=== PATIENT | male | born 1940 | race Two or more races ===

== ENCOUNTER 2016-10-23 11:37 | Inpatient (IN) | payer MEDICARE, BC ==
[2016-10-23] MEDS ORDERED: SODIUM CHLORIDE 0.9% 500 ML IV STA (11:57)
[2016-10-23] MEDS ORDERED: METOCLOPRAMIDE 5 MG/ML 2 ML VIAL IVP STA (11:58)
[2016-10-23] MEDS ORDERED: MECLIZINE 12.5 MG TAB PO STA (11:58)
--- NOTE | 2016-10-23 12:03 | ED ---
General Adult HPI - General Chief complaint: Dizziness Stated complaint: dizzy Time Seen by Provider: 10/23/16 11:49 Source: patient, family, RN notes reviewed Mode of arrival: wheelchair Limitations: no limitations - History of Present Illness Initial comments: Patient is a pleasant 76-year-old male presenting to the emergency department with dizziness. Symptoms have been present for the past month. Symptoms have been mostly persistent. Patient has dizziness as lightheadedness as well as spinning type sensation. Symptoms do worsen with movements and position changes. Patient feels off balance at times. Patient feels sweaty at times. Patient does have some discomfort of his upper neck. Patient has chronic back pain with chronic left leg loss of sensation and weakness. Patient gets steroid injections for this. states at times she gets forgetful. No new isolated area of weakness. No speech problems. No visual change. No new paresthesias. Patient was seen at [facility] last week however no improvement of symptoms. Patient did have computed tomography scan done showing sinusitis. - Related Data Home Medications Medication Instructions Recorded Confirmed Atorvastatin [Lipitor] 10 mg PO DAILY 10/23/16 10/23/16 Cyclobenzaprine [Flexeril] 10 mg PO TID 10/23/16 10/23/16 Fluticasone Nasal [place] [Flonase 2 spr EA NOSTRIL DAILY 10/23/16 10/23/16 Nasal [place]] Lisinopril-Hctz 10-12.5 mg 1 tab PO DAILY 10/23/16 10/23/16 [Zestoretic 10-12.5] Meclizine [Antivert] 25 mg PO TID PRN 10/23/16 10/23/16 Pregabalin [Lyrica] 225 mg PO BID 10/23/16 10/23/16 Allergies Allergy/AdvReac Type Severity Reaction Status Date / Time ibuprofen [From Motrin] Allergy Unknown Verified 10/23/16 11:56 Review of Systems ROS Statement: Those systems with pertinent positive or pertinent negative responses have been documented in the HPI. ROS Other: All systems not noted in ROS Statement are negative. Constitutional: Denies: fever Eyes: Denies: eye pain ENT: Denies: ear pain Respiratory: Denies: cough Cardiovascular: Denies: chest pain Endocrine: Denies: fatigue Gastrointestinal: Denies: abdominal pain Genitourinary: Denies: dysuria Musculoskeletal: Reports: back pain (Chronic) Skin: Denies: rash Neurological: Reports: vertigo. Denies: headache Past Medical History Past Medical History: Hyperlipidemia, Hypertension Additional Past Medical History / Comment(s): back pain, vertigo History of Any Multi-Drug Resistant Organisms: None Reported Past Psychological History: No Psychological Hx Reported Smoking Status: Never smoker Past Alcohol Use History: None Reported Past Drug Use History: None Reported General Exam Limitations: no limitations General appearance: alert, in no apparent distress Head exam: Present: atraumatic Eye exam: Present: normal appearance, PERRL, EOMI. Absent: nystagmus ENT exam: Present: normal oropharynx Neck exam: Present: normal inspection, tenderness (Mild tenderness to the upper neck posteriorly.) Respiratory exam: Present: normal lung sounds bilaterally Cardiovascular Exam: Present: regular rate, normal rhythm GI/Abdominal exam: Present: soft. Absent: tenderness Extremities exam: Present: normal inspection. Absent: pedal edema, calf tenderness Neurological exam: Present: alert, CN II-XII intact. Absent: motor sensory deficit Expanded Speech: Present: fluid speech Cranial nerves: EOM's Intact: Normal, Facial Sensation: Normal Cerebellar function: Finger to Nose: Normal Sensory exam: Upper Extremity Light Touch: Normal, Lower Extremity Light Touch: Normal Motor strength exam: RUE: 5, LUE: 5, RLE: 5, LLE: 5 Eye Response: (4) open spontaneously Motor Response: (6) obeys commands Verbal Response: (5) oriented Psychiatric exam: Present: normal affect, normal mood Skin exam: Present: normal color Course Vital Signs 10/23/16 11:42 Temperature 98.0 F Pulse Rate 94 Respiratory 20 Rate Blood Pressure 112/63 O2 Sat by Pulse 98 Oximetry EKG Findings - EKG Comments: EKG Findings:: Sinus rhythm and 92. For screening AV block with a AK of 254. QRS 126. QT 376. QTc 464. Left axis. Left bundle branch block. Septal Q waves. No acute ST change. Medical Decision Making - Medical Decision Making Patient reexamined and somewhat improved with medication. Case discussed with Dr. Lew, who will admit with hospital call. MRI will be ordered and neurology will be consult. - Lab Data Result diagrams: 10/23/16 12:39 10/23/16 12:39 Lab Results 06/10/23/16 10/23/16 Range/Units 12:39 12:39 12:39 WBC 11.2 H (3.8-10.6) k/uL RBC 4.84 (4.30-5.90) m/uL Hgb 15.0 (13.0-17.5) gm/dL Hct 41.5 (39.0-53.0) % MCV 85.6 (80.0-100.0) fL MCH 31.0 (25.0-35.0) pg MCHC 36.2 (31.0-37.0) g/dL RDW 14.2 (11.5-15.5) % Plt Count 201 (150-450) k/uL Neutrophils % 72 % Lymphocytes % 21 % Monocytes % 5 % Eosinophils % 1 % Basophils % 0 % Neutrophils # 8.0 H (1.3-7.7) k/uL Lymphocytes # 2.3 (1.0-4.8) k/uL Monocytes # 0.6 (0-1.0) k/uL Eosinophils # 0.1 (0-0.7) k/uL Basophils # 0.0 (0-0.2) k/uL PT 10.4 (9.0-12.0) sec INR 1.0 (<1.1) APTT 22.1 (22.0-30.0) sec Sodium 135 L (137-145) mmol/L Potassium 4.5 (3.5-5.1) mmol/L Chloride 101 (98-107) mmol/L Carbon Dioxide 23 (22-30) mmol/L Anion Gap 11 mmol/L BUN 33 H (9-20) mg/dL Creatinine 1.42 H (0.66-1.25) mg/dL Est GFR (MDRD) Af Amer 59 (>60 ml/min/1.73 sqM) Est GFR (MDRD) Non-Af 48 (>60 ml/min/1.73 sqM) Glucose 126 H (74-99) mg/dL Calcium 10.2 (8.4-10.2) mg/dL Total Bilirubin 0.7 (0.2-1.3) mg/dL AST 20 (17-59) U/L ALT 31 (21-72) U/L Alkaline Phosphatase 64 (38-126) U/L Total Creatine Kinase (55-170) U/L CK-MB (CK-2) (0.0-2.4) ng/mL CK-MB (CK-2) Rel Index Troponin I (0.000-0.034) ng/mL Total Protein 7.3 (6.3-8.2) g/dL Albumin 4.2 (3.5-5.0) g/dL Urine Color Urine Appearance (Clear) Urine pH (5.0-8.0) Ur Specific [place] (1.001-1.035) Urine Protein (Negative) Urine Glucose (UA) (Negative) Urine Ketones (Negative) Urine Blood (Negative) Urine Nitrite (Negative) Urine Bilirubin (Negative) Urine Urobilinogen (<2.0) mg/dL Ur Leukocyte Esterase (Negative) 10/23/16 10/23/16 Range/Units 12:39 12:47 WBC (3.8-10.6) k/uL RBC (4.30-5.90) m/uL Hgb (13.0-17.5) gm/dL Hct (39.0-53.0) % MCV (80.0-100.0) fL MCH (25.0-35.0) pg MCHC (31.0-37.0) g/dL RDW (11.5-15.5) % Plt Count (150-450) k/uL Neutrophils % % Lymphocytes % % Monocytes % % Eosinophils % % Basophils % % Neutrophils # (1.3-7.7) k/uL Lymphocytes # (1.0-4.8) k/uL Monocytes # (0-1.0) k/uL Eosinophils # (0-0.7) k/uL Basophils # (0-0.2) k/uL PT (9.0-12.0) sec INR (<1.1) APTT (22.0-30.0) sec Sodium (137-145) mmol/L Potassium (3.5-5.1) mmol/L Chloride (98-107) mmol/L Carbon Dioxide (22-30) mmol/L Anion Gap mmol/L BUN (9-20) mg/dL Creatinine (0.66-1.25) mg/dL Est GFR (MDRD) Af Amer (>60 ml/min/1.73 sqM) Est GFR (MDRD) Non-Af (>60 ml/min/1.73 sqM) Glucose (74-99) mg/dL Calcium (8.4-10.2) mg/dL Total Bilirubin (0.2-1.3) mg/dL AST (17-59) U/L ALT (21-72) U/L Alkaline Phosphatase (38-126) U/L Total Creatine Kinase 42 L (55-170) U/L CK-MB (CK-2) 1.1 (0.0-2.4) ng/mL CK-MB (CK-2) Rel Index 2.6 Troponin I <0.012 (0.000-0.034) ng/mL Total Protein (6.3-8.2) g/dL Albumin (3.5-5.0) g/dL Urine Color Yellow Urine Appearance Clear (Clear) Urine pH 5.5 (5.0-8.0) Ur Specific [place] 1.021 (1.001-1.035) Urine Protein Trace H (Negative) Urine Glucose (UA) 1+ H (Negative) Urine Ketones Trace H (Negative) Urine Blood Negative (Negative) Urine Nitrite Negative (Negative) Urine Bilirubin Negative (Negative) Urine Urobilinogen 2.0 (<2.0) mg/dL Ur Leukocyte Esterase Negative (Negative) Disposition Clinical Impression: Vertigo Disposition: ADMITTED IP TO THIS [facility] Referrals: Sterling Cortes MD [Primary Care Provider] - 1-2 days Decision Time: 14:20
[2016-10-23 12:55] LABS: Basophils % (A) 0 %; CHCM 35.1; Eosinophils # (A) 0.1 k/uL (0-0.7); Eosinophils % (A) 1 %; HCT 41.5 % (39.0-53.0); HDW 2.59; Luc # (Auto) 0.17; Luc % (Auto) 2; Lymphocytes # (A) 2.3 k/uL (1.0-4.8); Lymphocytes % (A) 21 %; MCHC 36.2 g/dL (31.0-37.0); MCV 85.6 fL (80.0-100.0); Mean Platelet Volume 7.1; Monocytes # (A) 0.6 k/uL (0-1.0); Monocytes % (A) 5 %; Neutrophils % (A) 72 %; RBC 4.84 m/uL (4.30-5.90); RDW 14.2 % (11.5-15.5); WBC 11.2 k/uL (3.8-10.6); WBC (Perox) 11.14
[2016-10-23 13:04] LABS: Partial Thromboplastin Time 22.1 sec (22.0-30.0); Prothrombin Time 10.4 sec (9.0-12.0)
[2016-10-23 13:11] LABS: Calcium 10.2 mg/dL (8.4-10.2); Potassium 4.5 mmol/L (3.5-5.1); Total Bilirubin 0.7 mg/dL (0.2-1.3); Total Protein 7.3 g/dL (6.3-8.2)
[2016-10-23 13:14] LABS: Appearance,Urine Clear (Clear); Bilirubin,Urine Negative (Negative); Glucose,Urine (UA) 1+ (Negative); Ketones,Urine Trace (Negative); Leukocyte Esterase,Urine Negative (Negative); Nitrite,Urine Negative (Negative); PH, Urine 5.5 (5.0-8.0); Protein,Urine Trace (Negative); Specific Gravity,Urine 1.021 (1.001-1.035); UA Billing (MACRO vs. MICRO) CHEM
[2016-10-23 13:17] LABS: Creatine Kinase 42 U/L (55-170)
[2016-10-23 13:30] LABS: Creatine Kinase MB 1.1 ng/mL (0.0-2.4); Troponin I <0.012 ng/mL (0.000-0.034)
[2016-10-23] MEDS ORDERED: NALOXONE 0.4 MG/ML 1 ML VIAL IV PRN (14:20)
[2016-10-23] MEDS ORDERED: MECLIZINE 25 MG TAB PO PRN (14:24)
--- NOTE | 2016-10-23 16:10 | MR ---
EXAMINATION TYPE: MR brain/cspine wo/w DATE OF EXAM: 10/23/2016 COMPARISON: NONE HISTORY: Vertigo...Multihance 20ml TECHNIQUE: Multiplanar, multisequence images of the brain and brainstem is performed without and with IV contras t, utilizing 20 mL intravenous MultiHance . FINDINGS: BRAIN: Midline structures are unremarkable. There is a normal craniocervical junction. Echoplanar diffusion imaging is normal. There are normal vascular flow voids. The orbits are normal. There is no evidence of a CP angle mass lesion. There are scattered high signal FLAIR lesions. In this age group this is likely secondary to small ve ssel disease. There is no mass effect, midline shift or intracranial blood. Following intravenous administration of gadolinium, I do not see evidence of abnormal enhancement. CERVICAL SPINE: Prevertebral soft tissues are normal. Vertebral body height and alignment are maintained. Atlantoaxial relationships are normal. There is a normal craniocervical junction. Cord signal appears maintained. There is moderate artifact in the lower cervical region. At C2-C3, no definite abnormality is seen. At C3-C4, there is mild disc space loss and disc desiccation. There is a central disc protrusion defo rming the thecal sac with cord contact but without compression. There is mild left-sided intervertebr al foraminal narrowing secondary to uncovertebral joint disease. The facets are unremarkable. At C4-C5, there is disc space loss and hypertrophic spondylosis anteriorly and posteriorly. There is bilateral intervertebral foraminal narrowing. There is a diffuse disc displacement. The facets are un remarkable. There is uncovertebral joint disease. At C5-C6, there is disc space loss and hypertrophic spondylosis. There is bilateral intervertebral fo raminal narrowing, worse on the left than the right. There is a diffuse disc displacement deforming t he thecal sac with cord contact but without compression. The facets are unremarkable. There is uncove rtebral joint disease. At C6-C7, there is disc space loss. There is a broad-based disc displacement. This is deforming the t hecal sac with cord contact but without compression. There is bilateral intervertebral foraminal narr owing. The facets are unremarkable. There is degenerative changes within the uncovertebral joints. At C7-T1, no discrete abnormality is seen. IMPRESSION: 1. DIFFUSE DEGENERATIVE DISC DISEASE, HYPERTROPHIC SPONDYLOSIS AND UNCOVERTEBRAL JOINT DISEASE. 2. MULTILEVEL INTERVERTEBRAL FORAMINAL NARROWING. 3. DISC LEVELS WITH DISC DISPLACEMENTS OR PROTRUSIONS DEFORMING THE THECAL SAC WITH CORD CONTACT WITH OUT COMPRESSION INCLUDING C4-5, C5-6 AND C6-7. 4. NO ACUTE INTRACRANIAL ABNORMALITY. 5. SCATTERED HIGH SIGNAL FLAIR LESIONS THROUGHOUT THE DEEP WHITE MATTER TRACTS OF THE CEREBRAL HEMISP HERES ARE NONSPECIFIC. IN THIS AGE GROUP, THESE LIKELY RELATE TO SMALL VESSEL DISEASE.
[2016-10-23] MEDS: SODIUM CHLORIDE 0.9% 1,000 ML IV SCH (17:07)
[2016-10-23 17:38] VITALS: RESP 16
--- NOTE | 2016-10-23 18:19 | P.CNNES ---
History of Present Illness Consult date: 10/23/16 History of Present Illness: The patient is a 76-year-old male who reports that he has been having dizziness for 1 month. He describes it as a sensation of feeling like his went to pass out. His who was at his bedside states that he becomes diaphoretic and pale. Sometimes he has to sit down. He has never lost consciousness. He states the dizziness is described as a sense of lightheadedness as well as a sense of motion and vertigo at times. If he bends over it is worse and if he turns quickly it is worse. He complains of right ear tinnitus and pain for the last 1 month. He complains of pressure sensation in the neck for the last 3 months. He has chronic neck pain but the last 3 months have been worse. He denied any other neurologic symptoms such as focal weakness numbness visual disturbance facial droop or speech disturbance he had a MRI of the brain which showed diffuse scattered high signal lesions consistent with small vessel disease. He also had an MRI of the cervical spine which showed diffuse degenerative disc disease and spondylosis and disc displacements. Review of Systems Constitutional: Denies chills, Denies fever Eyes: denies blurred vision, denies pain Ears, nose, mouth and throat: Denies headache, Denies sore throat Cardiovascular: Denies chest pain, Denies shortness of breath Respiratory: Denies cough Gastrointestinal: Denies abdominal pain, Denies diarrhea, Denies nausea, Denies vomiting Musculoskeletal: Denies myalgias Neurological: Denies numbness, Denies weakness Psychiatric: Denies anxiety, Denies depression Past Medical History Past Medical History: Hyperlipidemia, Hypertension, Pneumonia, Rheumatoid Arthritis (RA) Additional Past Medical History / Comment(s): chronic back pain/chronic lt leg loss of sensation/weak stated gets injections for this", vertigo, bronchitis, "occular migraines","pterygium", tinnitus rt ear, "irreg heart beat", shingles approx may 2016, upper bridge.boarderline diabetic-no meds taken and does'nt check bs. History of Any Multi-Drug Resistant Organisms: None Reported Additional Past Surgical History / Comment(s): la shoulder arthrosocpy, injections in back Past Anesthesia/Blood Transfusion Reactions: Motion Sickness Additional Past Anesthesia/Blood Transfusion Reaction / Comment(s): clausterphobia Smoking Status: Former smoker - Past Family History Father Family Medical History: No Reported History Additional Family Medical History / Comment(s): WAS HEALTHY FROM "OLD AGE AT AGE 89" Mother Family Medical History: No Reported History Additional Family Medical History / Comment(s): IN HER 90'S "OLD AGE" Medications and Allergies Home Medications Medication Instructions Recorded Confirmed Type Atorvastatin [Lipitor] 10 mg PO DAILY 10/23/16 10/23/16 History Cyclobenzaprine [Flexeril] 10 mg PO TID 10/23/16 10/23/16 History Fluticasone Nasal [place] [Flonase 2 spr EA NOSTRIL DAILY 10/23/16 10/23/16 History Nasal [place]] Lisinopril-Hctz 10-12.5 mg 1 tab PO DAILY 10/23/16 10/23/16 History [Zestoretic 10-12.5] Meclizine [Antivert] 25 mg PO TID PRN 10/23/16 10/23/16 History Pregabalin [Lyrica] 225 mg PO BID 10/23/16 10/23/16 History Allergies Allergy/AdvReac Type Severity Reaction Status Date / Time ibuprofen [From Motrin] Allergy Unknown Verified 10/23/16 11:56 Physical Examination - Vital Signs Vital Signs: Vital Signs Temp Pulse Pulse Resp BP BP Pulse Ox 10/23/16 15:30 97.9 F 85 16 149/74 98 10/23/16 14:36 98.3 F 84 18 120/74 98 10/23/16 14:10 88 18 127/70 97 10/23/16 13:10 93 18 118/68 95 10/23/16 11:42 98.0 F 94 20 112/63 98 Intake and Output 10/23/16 10/23/16 10/23/16 06:59 14:59 22:59 Other: Voiding Method Toilet Weight 106.594 kg Patient Weight 10/24/16 06:59 Weight 106.594 kg - Constitutional General appearance: average body habitus - EENT EENT: PERRL, hearing intact, vision intact - Respiratory Respiratory: lungs clear - Cardiovascular Cardiovascular: regular rate, normal S1, normal S2 - Neurologic Mental status he was awake alert and oriented he answered questions appropriately there is no a aphasia or dysarthria Cranial nerve examination: PERRL, EOMI, VFF, V1/V2/V3 grossly intact, face symmetric, tongue midline Speech examination: intact Detailed motor examination: grossly full strength in all extremities Detailed sensory examination: intact - Psychiatric Psychiatric: mood/affect appropriate Results - Laboratory Findings CBC and BMP: 10/23/16 12:39 10/23/16 12:39 Abnormal Lab Findings: Abnormal Labs 10/23/16 10/23/16 10/23/16 12:39 12:39 12:39 WBC 11.2 H Neutrophils # 8.0 H Sodium 135 L BUN 33 H Creatinine 1.42 H Glucose 126 H Total Creatine Kinase 42 L Urine Protein Urine Glucose (UA) Urine Ketones 10/23/16 12:47 WBC Neutrophils # Sodium BUN Creatinine Glucose Total Creatine Kinase Urine Protein Trace H Urine Glucose (UA) 1+ H Urine Ketones Trace H Assessment and Plan (1) Vertigo Status: Acute Code(s): R42 - DIZZINESS AND GIDDINESS (2) Pre-syncope Status: Acute Code(s): R55 - SYNCOPE AND COLLAPSE (3) Cervical disc disease Status: Acute Code(s): M50.90 - CERVICAL DISC DISORDER, UNSP, UNSPECIFIED CERVICAL REGION Plan: The patient is having both vertigo as well as presyncopal symptoms. He has events where he feels like his go to pass out with lightheadedness and diaphoresis. Is also having events which are aggravated by movement where he feels a vertigo with slight nausea. He does not have any clinical history to suggest vertebrobasilar symptoms. His vertigo is more likely related to a peripheral vestibular disturbance. Recommend salt restriction and continue Antivert. Recommend follow up with ENT regarding right ear tinnitus and right ear pain. He will was advised to take one aspirin a day for stroke prevention and we will do a carotid ultrasound and echocardiogram. He will be seeing orthopedics for his spine.
[2016-10-23] MEDS: METOCLOPRAMIDE 5 MG/ML 2 ML VIAL IVP SCH ×2 (18:21→23:27)
--- NOTE | 2016-10-23 19:30 | US ---
EXAMINATION TYPE: US carotid duplex BILAT DATE OF EXAM: 10/23/2016 COMPARISON: NONE CLINICAL HISTORY: Vertigo. EXAM MEASUREMENTS: RIGHT: Peak Systolic Velocity (PSV) cm/sec ----- Right CCA: 115.9 ----- Right ICA: 74.9 ----- Right ECA: 56.9 ICA/CCA ratio: 0.6 RIGHT: End Diastole cm/sec ----- Right CCA: 14.5 ----- Right ICA: 22.7 ----- Right ECA: 56.9 LEFT: Peak Systolic Velocity (PSV) cm/sec ----- Left CCA: 62.5 ----- Left ICA: 60.5 ----- Left ECA: 68.3 ICA/CCA ratio: 1.0 LEFT: End Diastole cm/sec ----- Left CCA: 10.2 ----- Left ICA: 18.4 ----- Left ECA: 5.1 VERTEBRALS (direction of flow): Right Vertebral: Antegrade Left Vertebral: Antegrade Mild plaque, No significant velocity elevations. IMPRESSION: There is antegrade flow in the vertebral arteries. The images and measurements suggest 1 0% stenosis of both internal carotid arteries. Criteria for Assigning % of Stenosis / Diameter reduction (Estimation based on the indirect measurements of the internal carotid artery velocities (ICA PSV). 1. Normal (no stenosis)=ICA PSV < 125 cm/s: ratio < 2.0: ICA EDV<40 cm/s. 2. Less than 50% stenosis=ICA PSV < 125 cm/s: ratio < 2.0: ICA EDV<40 cm/s. 3. 50 to 69% stenosis=ICA PSV of 125 to 230 cm/s: ration 2.0 ? 4.0: ICA EDV 40-100 cm/s. 4. Greater than 70% stenosis to near occlusion= ICA PSV > 230 cm/s: ratio > 4.0: ICA EDV > 100 cm/s. 5. Near occlusion= ICA PSV velocities may be low or undetectable: variable ratio and ICA EDV. 6. Total occlusion=unable to detect flow.
[2016-10-23] MEDS ORDERED: PREGABALIN 75 MG CAP PO SCH (21:00)
[2016-10-23] MEDS: MECLIZINE 12.5 MG TAB PO SCH (21:19)
[2016-10-23] MEDS: CYCLOBENZAPRINE 10 MG TAB PO SCH (23:11)
[2016-10-24] MEDS: METOCLOPRAMIDE 5 MG/ML 2 ML VIAL IVP SCH (05:50)
[2016-10-24] MEDS: SODIUM CHLORIDE 0.9% 1,000 ML IV SCH (05:50)
[2016-10-24] MEDS: MECLIZINE 12.5 MG TAB PO SCH (09:00)
[2016-10-24] MEDS ORDERED: ATORVASTATIN 10 MG TAB PO SCH (09:00)
[2016-10-24] MEDS ORDERED: FLUTICASONE 50MCG/SPRAY NASAL 16GM EA NOSTRIL SCH (09:00)
[2016-10-24] MEDS ORDERED: LISINOPRIL-HCTZ 10-12.5 MG 1 EACH TAB PO SCH (09:00)
[2016-10-24] MEDS: CYCLOBENZAPRINE 10 MG TAB PO SCH (09:02)
[2016-10-24 09:17] VITALS: BP 131/67; PULSE 97; TEMP 98.2
--- NOTE | 2016-10-24 12:02 | P.CNOR ---
History of Present Illness - [facility] Consult date: 10/24/16 History of present illness: This is a 76-year-old male admitted with vertigo and dizziness. He complains of neck pain as well. He has been following with Dr. Steinberg at [facility] and has had 3 lumbar epidural injections which have improved his low back and leg pain. He has not been evaluated for his neck. He states that he has noticed that he is dropping objects with his left arm has noted some weakness. He has been seen by neurology for the dizziness and vertigo. Past Medical History Past Medical History: Hyperlipidemia, Hypertension, Pneumonia, Rheumatoid Arthritis (RA) Additional Past Medical History / Comment(s): chronic back pain/chronic lt leg loss of sensation/weak stated gets injections for this", vertigo, bronchitis, "occular migraines","pterygium", tinnitus rt ear, "irreg heart beat", shingles approx may 2016, upper bridge.boarderline diabetic-no meds taken and does'nt check bs. History of Any Multi-Drug Resistant Organisms: None Reported Additional Past Surgical History / Comment(s): la shoulder arthrosocpy, injections in back Past Anesthesia/Blood Transfusion Reactions: Motion Sickness Additional Past Anesthesia/Blood Transfusion Reaction / Comm: clausterphobia Smoking Status: Former smoker - Past Family History Father Family Medical History: No Reported History Additional Family Medical History / Comment(s): WAS HEALTHY FROM "OLD AGE AT AGE 89" Mother Family Medical History: No Reported History Additional Family Medical History / Comment(s): IN HER 90'S "OLD AGE" Medications and Allergies Home Medications Medication Instructions Recorded Confirmed Type Atorvastatin [Lipitor] 10 mg PO DAILY 10/23/16 10/23/16 History Cyclobenzaprine [Flexeril] 10 mg PO TID 10/23/16 10/23/16 History Fluticasone Nasal [place] [Flonase 2 spr EA NOSTRIL DAILY 10/23/16 10/23/16 History Nasal [place]] Lisinopril-Hctz 10-12.5 mg 1 tab PO DAILY 10/23/16 10/23/16 History [Zestoretic 10-12.5] Pregabalin [Lyrica] 225 mg PO BID 10/23/16 10/23/16 History Allergies Allergy/AdvReac Type Severity Reaction Status Date / Time ibuprofen [From Motrin] Allergy Unknown Verified 10/23/16 11:56 Physical Examination This is a pleasant 76-year-old male in no acute distress. He is alert and oriented 3. Exam of the head neck reveal no obvious deformity. He has some limitation in cervical motion, particularly rotation and extension. There is pain on palpation about the cervical spine and paraspinal musculature up into the occipital region. Exam the upper extremities reveals no obvious deformity. There is decreased basketballs and footballs reverser strength on the left. There is weakness with thumb extension and maintaining finger extension on the left. He has normal sensation to the fingers on both hands. He has full wrist and finger motion without difficulty or pain. Radial pulses are +2/4 bilaterally. Results MRI of the cervical spine reveals degenerative disc disease throughout with foraminal and mild canal stenosis. No acute fractures identified. - Labs Labs: Abnormal Lab Results - Last 24 Hours (Table) 10/23/16 10/23/16 10/23/16 Range/Units 12:39 12:39 12:39 WBC 11.2 H (3.8-10.6) k/uL Neutrophils # 8.0 H (1.3-7.7) k/uL Sodium 135 L (137-145) mmol/L BUN 33 H (9-20) mg/dL Creatinine 1.42 H (0.66-1.25) mg/dL Glucose 126 H (74-99) mg/dL Total Creatine Kinase 42 L (55-170) U/L Urine Protein (Negative) Urine Glucose (UA) (Negative) Urine Ketones (Negative) 10/23/16 Range/Units 12:47 WBC (3.8-10.6) k/uL Neutrophils # (1.3-7.7) k/uL Sodium (137-145) mmol/L BUN (9-20) mg/dL Creatinine (0.66-1.25) mg/dL Glucose (74-99) mg/dL Total Creatine Kinase (55-170) U/L Urine Protein Trace H (Negative) Urine Glucose (UA) 1+ H (Negative) Urine Ketones Trace H (Negative) H & H 10/23/16 Range/Units 12:39 Hgb 15.0 (13.0-17.5) gm/dL Hct 41.5 (39.0-53.0) % Coagulation 10/23/16 Range/Units 12:39 INR 1.0 (<1.1) Result Diagrams: 10/23/16 12:39 10/23/16 12:39 Assessment and Plan (1) Cervical disc disease Status: Acute (2) Vertigo Status: Acute Plan: The clinical and MRI findings are discussed with the patient and his family. I have discussed the case with Dr. Lew as well. I recommend that he be on a steroid or other anti-inflammatory and Dr. Lew's discretion. It is also recommended that he follow-up with Dr. Steinberg for possible epidural cervical injection. I will order physical therapy for treatment modalities for his neck pain. He may follow-up with Dr. Handy outpatient basis.
--- NOTE | 2016-10-24 12:55 | ECHOF ---
Referral Reason:Vertigo MEASUREMENTS -------- HEIGHT: 180.3 cm WEIGHT: 106.6 kg BP: 125/58 IVSd: 1.3 cm (0.6 - 1.1) LVIDd: 3.2 cm (3.9 - 5.3) LVPWd: 1.4 cm (0.6 - 1.1) IVSs: 1.8 cm LVIDs: 1.8 cm LVPWs: 1.8 cm Ao Diam: 3.4 cm (2.0 - 3.7) AV Cusp: 1.8 cm (1.5 - 2.6) LA Diam: 3.3 cm (2.7 - 3.8) MV EXCURSION: 12.495 mm (> 18.000) MV EF SLOPE: 150 mm/s (70 - 150) EPSS: 1.2 cm MV E Josiah: 0.43 m/s MV DecT: 147 ms MV A Josiah: 0.67 m/s MV E/A Ratio: 0.64 RAP: 5.00 mmHg RVSP: 9.56 mmHg FINDINGS -------- 1ST degree AV block with left bundle branch block This was a technically adequate study. There is mild concentric left ventricular hypertrophy. Overall left ventricular systolic function is normal with, an EF between 55 - 60 %. The right ventricle is normal in size and function. The left atrium is normal in size. The right atrium is normal in size. The aortic valve is trileaflet, and appears structurally normal. No aortic stenosis or regurgitation. The mitral valve leaflets are mildly thickened. Mild mitral regurgitation is present. Mild tricuspid regurgitation present. The right ventricular systolic pressure, as measured by Doppler, is 9.56mmHg. Pulmonic valve appears structurally normal. The aortic root size is normal. The pericardium is normal. CONCLUSIONS -------- 1. 1ST degree AV block with left bundle branch block 2. Mild mitral regurgitation is present. 3. Mild tricuspid regurgitation present. 4. The right ventricular systolic pressure, as measured by Doppler, is 9.56mmHg. 5. Pulmonic valve appears structurally normal. 6. The aortic root size is normal. 7. The pericardium is normal. 8. This was a technically adequate study. 9. There is mild concentric left ventricular hypertrophy. 10. Overall left ventricular systolic function is normal with, an EF between 55 - 60 %. 11. The right ventricle is normal in size and function. 12. The left atrium is normal in size. 13. The right atrium is normal in size. 14. The aortic valve is trileaflet, and appears structurally normal. No aortic stenosis or regurgitation. 15. The mitral valve leaflets are mildly thickened. MATERIAL MAN: Becky Causey RDCS
--- NOTE | 2016-11-01 10:01 | HP ---
DATE OF ADMISSION: 10/23/2016 CHIEF COMPLAINTS: Vertigo and dizziness. HISTORY OF PRESENT ILLNESS: This 76 year old gentleman with past medical history of hypertension, hyperlipidemia, pneumonia, rheumatoid arthritis, complaining of dizziness and vertigo for the last one week, the patient also had an episode of presyncope episodes. The patient came to [facility] and was admitted for further evaluation and treatment. There is no history of fever, rigors or chills. No history of headache, loss of consciousness or seizures. Neurology evaluation in progress. PAST MEDICAL HISTORY: History of hypertension, hyperlipidemia, pneumonia. MEDICATIONS: Prior to admission include: 1. Lyrica po daily. 2. Lisinopril. 3. Hydrochlorothiazide. 4. Flexeril. 5. Lipitor. 6. Flonase. 7. Medrol dose [place]fr[place]. 8. Plavix. ALLERGIES: IBUPROFEN. FAMILY HISTORY: No history of heart disease or strokes in the family. SOCIAL HISTORY: Previous history of smoking. No history of alcohol intake. REVIEW OF SYSTEMS: ENT: As mentioned earlier. CARDIOVASCULAR: No angina. RESPIRATORY: No cough. GI: No nausea or vomiting. : No dysuria. NERVOUS SYSTEM: As mentioned earlier. ALLERGY/IMMUNOLOGY: No asthma or hayfever. MUSCULOSKELETAL: As mentioned earlier. HEMATOLOGY/ONCOLOGY: No history of anemia. ENDOCRINE: No history of diabetes, hypothyroidism. CONSTITUTIONAL: As mentioned earlier. DERMATOLOGY: Negative. RHEUMATOLOGICAL: Negative. PSYCHIATRY: As mentioned earlier. PHYSICAL EXAMINATION: The patient is alert and oriented times three. Pulse 97. Blood pressure 112/ 63. Respiratory 20. Temperature 98 degrees. Pulse ox 98% on room air. HEENT: Conjunctivae normal. NECK: No JVD. CARDIOVASCULAR S1, S2 muffled. RESPIRATORY: Breath sounds diminished at the bases. A few scattered rhonchi and crackles. ABDOMEN: Soft, nontender. LEGS: No edema. No swelling. NERVOUS SYSTEM: Higher functions as mentioned earlier. Moves all four limbs. No focal motor deficits. LYMPHATICS: No lymph nodes palpable in the neck, axilla or groin. SKIN: No ulcer, rash or bleeding. Labs at this time shows WBC 11.2, sodium 135, creatinine 1.4. ASSESSMENT: 1. Dizziness and vertigo for evaluation, rule out acute transient ischemic attack. 2. Hypertension. 3. Hyperlipidemia. 4. Increased creatinine. RECOMMENDATIONS AND DISCUSSION: Recommend to continue current medications. Continue symptomatic treatment. I would recommend further evaluation and brain MRI also. Guarded prognosis because of multiple complex medical issues. Further recommendations to follow. MTDD
--- NOTE | 2016-11-01 14:58 | DS ---
FINAL DIAGNOSES: 1. Dizziness and vertigo for evaluation; possibly verterbrobasilar dysfunction. 2. Cervical degenerative joint disease. 3. Hypertension. 4. Hyperlipidemia. DISCHARGE DISPOSITION: Patient will be discharged in stable condition with guarded prognosis. HISTORY OF PRESENT ILLNESS: This 76-year-old gentleman with a past medical history of multiple medical problems was admitted with vertigo and dizziness. Acute stroke was ruled out. Patient improved significantly. Neurology saw the patient. On exam, vitals are stable. CARDIOVASCULAR: S1, S2 muffled. ABDOMEN: Soft. NERVOUS SYSTEM: No focal deficit. The patient was also seen by Orthopedic Surgery. DISCHARGE ADVICE AND MEDICATIONS: 1. Diet is cardiac. 2. Activity limited until followup. 3. Follow up with Dr. Cortes. 4. Follow up with ENT as well as Neurology and Orthopedic Surgery as recommended. 5. Lipitor 10 mg p.o. daily. 6. Plavix 75 mg p.o. daily. 7. Flexeril 10 mg t.i.d. 8. Flonase 2 sprays daily. 9. Lisinopril/hydrochlorothiazide 10/12.5 mg daily. 10. Antivert 12.5 mg t.i.d. p.r.n. 11. Medrol Dosepak. 12. Lyrica 225 mg p.o. b.i.d. MTDD
== END 2016-10-24 14:30 | disposition home or self-care (01) | DRG 149 ==
LOC: EC 11:37 → 5MS5E 14:22
PROVIDERS: ADMIT Hospitalist; ATTEND Hospitalist
DX: H81.8X9 Other disorders of vestibular function, unspecified ear (principal); I44.7 Left bundle-branch block, unspecified; M06.9 Rheumatoid arthritis, unspecified; M50.21 Other cervical disc displacement, high cervical region; R55 Syncope and collapse; I10 Essential (primary) hypertension; E78.5 Hyperlipidemia, unspecified; M50.31 Other cervical disc degeneration, high cervical region; I67.9 Cerebrovascular disease, unspecified; G43.B0 Ophthalmoplegic migraine, not intractable; M48.02 Spinal stenosis, cervical region; R94.4 Abnormal results of kidney function studies; H93.11 Tinnitus, right ear; R73.09 Other abnormal glucose; R53.1 Weakness; H92.01 Otalgia, right ear; M54.5 Low back pain; G89.29 Other chronic pain; Z79.899 Other long term (current) drug therapy; Z87.891 Personal history of nicotine dependence; Z88.6 Allergy status to analgesic agent; Z87.01 Personal history of pneumonia (recurrent); Z87.09 Personal history of other diseases of the respiratory system; Z86.19 Personal history of other infectious and parasitic diseases; Z79.51 Long term (current) use of inhaled steroids; Z86.69 Personal history of other diseases of the nervous system and sense organs
CPT/HCPCS: 36415; 70553; 72156; 80053; 81003; 82550; 82553; 84484; 85025; 85610; 85730; 93005; 93306; 93880; 96374; 99285

== ENCOUNTER → 2017-07-15 | Outpatient (CLI) | payer MEDICARE, BC ==
--- NOTE | 2017-07-15 12:43 | MR ---
EXAMINATION TYPE: MR lumbar spine wo con DATE OF EXAM: 07/15/2017 11:44 AM COMPARISON: NONE HISTORY: Spinal stenosis, lumbar w/ neurogenic claudication, back pain Multiplanar, MultiSpin echo imaging of the lumbar spine was performed. L1-L2: Severe disc desiccation. Broad-based subligamentous disc herniation effaces the ventral thecal sac. Moderate central stenosis. Hypertrophy of the ligamentum flavum and facet joint arthropathy. L2-L3: Severe disc desiccation. Broad-based subligamentous disc herniation effaces the ventral thecal sac. Moderate central stenosis. Hypertrophy of the ligamentum flavum and facet joint arthropathy. L3-L4: Severe disc desiccation. Mild disc bulge paracentral to the right with mild right foraminal en croachment. No evidence for central stenosis or darby herniation. L4-L5: Severe disc desiccation. Mild disc bulge paracentral to the right with mild right foraminal en croachment. No evidence for central stenosis or darby herniation. L5-S1: Severe disc desiccation. Right paracentral disc bulge mild right foraminal encroachment. No ce ntral stenosis or disc herniation. Lumbar segments are intact. No paraspinal masses are identified. Conus medullaris has a normal appe arance. IMPRESSION: 1. Multilevel degenerative disc disease with moderate central stenosis at L1-L2 3. See above.
== END | disposition home or self-care (01) ==
LOC: RADMRIMAIN 10:44
PROVIDERS: ATTEND Neurological Surgery
DX: M48.061 Spinal stenosis, lumbar region without neurogenic claudication (principal); M51.36 Other intervertebral disc degeneration, lumbar region; M51.26 Other intervertebral disc displacement, lumbar region; M46.96 Unspecified inflammatory spondylopathy, lumbar region; M24.28 Disorder of ligament, vertebrae
CPT/HCPCS: 72148

== ENCOUNTER 2020-10-23 18:00 | Emergency (ER) | payer MEDICARE ==
[2020-10-23 18:26] VITALS: BP 150/63; PULSE 77; RESP 18; TEMP 98.2
--- NOTE | 2020-10-23 19:43 | ED ---
General Adult HPI - General Chief complaint: Extremity Problem,Nontraumatic Stated complaint: Sent by Ortho/leg pain Time Seen by Provider: 10/23/20 18:57 Source: patient Mode of arrival: ambulatory Limitations: no limitations - History of Present Illness Initial comments: 80 year-old male patient presents to the emergency department sent in after having an abnormal lower extremity ultrasound outpatient today. Patient states he has been having left leg pain and swelling. Did see orthopedics, had his left knee drained a few weeks ago, but continued to have pain. They ordered left lower extremity ultrasound which he had performed today and was told he had a blood clot and to come in for further evaluation. Patient is reporting pain to the posterior leg. Reports intermittent swelling. No history of blood clots. Does take a baby aspirin. Denies any fever, chills, or redness in the leg. Denies any chest pain, shortness of breath, or palpitations. - Related Data Home Medications Medication Instructions Recorded Confirmed Atorvastatin [Lipitor] 10 mg PO DAILY 10/23/16 10/23/16 Cyclobenzaprine [Flexeril] 10 mg PO TID 10/23/16 10/23/16 Fluticasone Nasal [place] [Flonase 2 spr EA NOSTRIL DAILY 10/23/16 10/23/16 Nasal [place]] Lisinopril-Hctz 10-12.5 mg 1 tab PO DAILY 10/23/16 10/23/16 [Zestoretic 10-12.5] Pregabalin [Lyrica] 225 mg PO BID 10/23/16 10/23/16 Previous Rx's Medication Instructions Recorded Clopidogrel [Plavix] 75 mg PO DAILY #30 tablet 10/24/16 Meclizine [Antivert] 12.5 mg PO TID #30 tab 10/24/16 methylPREDNISolone Dose Pack 4 mg PO DIRECTED #21 package 10/24/16 [Medrol Dose Pack] Apixaban [Eliquis Starter Pack 0 mg PO DIRECTED 30 Days #1 pack 10/23/20 (for VTE)] Allergies Allergy/AdvReac Type Severity Reaction Status Date / Time ibuprofen [From Motrin] Allergy Unknown Verified 10/23/20 18:26 Review of Systems ROS Statement: Those systems with pertinent positive or pertinent negative responses have been documented in the HPI. ROS Other: All systems not noted in ROS Statement are negative. Past Medical History Past Medical History: Hyperlipidemia, Hypertension, Pneumonia, Rheumatoid Arthritis (RA) Additional Past Medical History / Comment(s): chronic back pain/chronic lt leg loss of sensation/weak stated gets injections for this", vertigo, bronchitis,"occular migraines","pterygium", tinnitus rt ear, "irreg heart beat", shingles approx may 2016, upper bridge.boarderline diabetic-no meds taken and does'nt check bs. History of Any Multi-Drug Resistant Organisms: None Reported Additional Past Surgical History / Comment(s): la shoulder arthrosocpy, injections in back Past Anesthesia/Blood Transfusion Reactions: Motion Sickness Additional Past Anesthesia/Blood Transfusion Reaction / Comment(s): clausterphobia Past Psychological History: No Psychological Hx Reported Smoking Status: Former smoker Past Alcohol Use History: None Reported Past Drug Use History: None Reported - Past Family History Father Family Medical History: No Reported History Additional Family Medical History / Comment(s): WAS HEALTHY FROM "OLD AGE AT AGE 89" Mother Family Medical History: No Reported History Additional Family Medical History / Comment(s): IN HER 90'S "OLD AGE" General Exam Limitations: no limitations General appearance: alert, in no apparent distress, other (Social well- developed, well-nourished elderly male patient in no acute distress. Vital signs upon presentation To 98.2F, pulse 77, respirations 18, blood pressure 150/63, pulse ox 97% on room air.) Eye exam: Present: normal appearance, PERRL, EOMI. Absent: scleral icterus, conjunctival injection, periorbital swelling ENT exam: Present: normal exam, normal oropharynx, mucous membranes moist Respiratory exam: Present: normal lung sounds bilaterally. Absent: respiratory distress, wheezes, rales, rhonchi, stridor Cardiovascular Exam: Present: regular rate, normal rhythm, normal heart sounds. Absent: systolic murmur, diastolic murmur, rubs, gallop, clicks Extremities exam: Present: full ROM, normal capillary refill, other (There is some nonpitting edema noted around the left ankle, similar appearance to the right leg. Skin is otherwise pink, warm, dry. Cap refill less than 3 seconds. Pedal pulse 2+.). Absent: tenderness, pedal edema, joint swelling, calf tenderness Neurological exam: Present: alert, oriented X3, CN II-XII intact Psychiatric exam: Present: normal affect, normal mood Skin exam: Present: warm, dry, intact, normal color. Absent: rash Course Vital Signs 10/23/20 18:24 Temperature 98.2 F Pulse Rate 77 Respiratory 18 Rate Blood Pressure 150/63 O2 Sat by Pulse 97 Oximetry Medical Decision Making - Medical Decision Making 80-year-old male patient presents for evaluation after having an abnormal outpatient left lower extremity ultrasound. I did review the report showed evidence for thrombus to the left mid femoral vein. This is probably chronic. He was started on Eliquis here after review of labs. We did discuss safe use of anticoagulants and bleeding precautions. He is instructed to follow up his primary care physician for recheck in 1-2 days. Return parameters discussed in detail. He verbalizes understanding and agrees with this plan. Case discussed with my attending Dr. Melvin. - Lab Data Result diagrams: 10/23/20 20:01 10/23/20 20:01 Lab Results 10/23/20 10/23/20 10/23/20 Range/Units 20:01 20:01 20:01 WBC 9.8 (3.8-10.6) k/uL RBC 5.10 (4.30-5.90) m/uL Hgb 14.6 (13.0-17.5) gm/dL Hct 45.0 (39.0-53.0) % MCV 88.2 (80.0-100.0) fL MCH 28.6 (25.0-35.0) pg MCHC 32.4 (31.0-37.0) g/dL RDW 13.6 (11.5-15.5) % Plt Count 224 (150-450) k/uL MPV 7.6 Neutrophils % 66 % Lymphocytes % 25 % Monocytes % 5 % Eosinophils % 3 % Basophils % 1 % Neutrophils # 6.4 (1.3-7.7) k/uL Lymphocytes # 2.5 (1.0-4.8) k/uL Monocytes # 0.5 (0-1.0) k/uL Eosinophils # 0.3 (0-0.7) k/uL Basophils # 0.1 (0-0.2) k/uL PT 10.2 (9.0-12.0) sec INR 0.9 (<1.2) APTT 22.2 (22.0-30.0) sec Sodium 140 (137-145) mmol/L Potassium 4.1 (3.5-5.1) mmol/L Chloride 106 (98-107) mmol/L Carbon Dioxide 25 (22-30) mmol/L Anion Gap 9 mmol/L BUN 22 H (9-20) mg/dL Creatinine 1.31 H (0.66-1.25) mg/dL Est GFR (CKD-EPI)AfAm 59 (>60 ml/min/1.73 sqM) Est GFR (CKD-EPI)NonAf 51 (>60 ml/min/1.73 sqM) Glucose 225 H (74-99) mg/dL Calcium 9.9 (8.4-10.2) mg/dL Total Bilirubin 0.2 (0.2-1.3) mg/dL AST 27 (17-59) U/L ALT 21 (4-49) U/L Alkaline Phosphatase 73 (38-126) U/L Total Protein 7.1 (6.3-8.2) g/dL Albumin 4.2 (3.5-5.0) g/dL - Radiology Data Radiology results: report reviewed DVT left mid femoral vein thrombosis, non-obstructed, collateral vessels poss ible chronic DVT. Disposition Clinical Impression: Left leg DVT Disposition: HOME SELF-CARE Condition: Good Instructions (If sedation given, give patient instructions): Deep Vein T hrombosis (ED), Safe Use of Anticoagulants (ED) Additional Instructions: Take eliquis as prescribed. Follow up with the vascular specialist and your primary care physician. Return to the emergency department for any new, worsening, or concerning symptoms. Prescriptions: Apixaban [Eliquis Starter Pack (for VTE)] 0 mg PO DIRECTED 30 Days #1 pack Is patient prescribed a controlled substance at d/c from ED?: No Referrals: Chery Gil NPC [Family Provider] - 1-2 days Time of Disposition: 20:51
[2020-10-23 20:17] LABS: Basophils # (A) 0.1 k/uL (0-0.2); Basophils % (A) 1 %; Eosinophils # (A) 0.3 k/uL (0-0.7); Eosinophils % (A) 3 %; HGB 14.6 gm/dL (13.0-17.5); Lymphocytes # (A) 2.5 k/uL (1.0-4.8); Lymphocytes % (A) 25 %; MCH 28.6 pg (25.0-35.0); MCHC 32.4 g/dL (31.0-37.0); MCV 88.2 fL (80.0-100.0); Mean Platelet Volume 7.6; Monocytes # (A) 0.5 k/uL (0-1.0); Monocytes % (A) 5 %; Neutrophils # (A) 6.4 k/uL (1.3-7.7); Neutrophils % (A) 66 %; Platelet Count 224 k/uL (150-450); RDW 13.6 % (11.5-15.5); WBC 9.8 k/uL (3.8-10.6)
[2020-10-23 20:23] LABS: Albumin 4.2 g/dL (3.5-5.0); Calcium 9.9 mg/dL (8.4-10.2); Potassium 4.1 mmol/L (3.5-5.1); Total Bilirubin 0.2 mg/dL (0.2-1.3); Total Protein 7.1 g/dL (6.3-8.2)
[2020-10-23 20:31] LABS: INR 0.9 (<1.2); Partial Thromboplastin Time 22.2 sec (22.0-30.0); Prothrombin Time 10.2 sec (9.0-12.0)
[2020-10-23] MEDS ORDERED: APIXABAN 5 MG TAB PO STA (20:48)
== END 2020-10-23 21:03 | disposition home or self-care (01) ==
LOC: EC 18:00
DX: I82.412 Acute embolism and thrombosis of left femoral vein (principal); I10 Essential (primary) hypertension; E78.5 Hyperlipidemia, unspecified; M06.9 Rheumatoid arthritis, unspecified; Z87.891 Personal history of nicotine dependence; Z79.01 Long term (current) use of anticoagulants; Z79.52 Long term (current) use of systemic steroids; Z79.899 Other long term (current) drug therapy
CPT/HCPCS: 36415; 80053; 85025; 85610; 85730; 99283

== ENCOUNTER → 2020-10-23 | Outpatient (CLI) | payer MEDICARE ==
--- NOTE | 2020-10-23 17:00 | US ---
EXAMINATION TYPE: US venous doppler duplex LE LT DATE OF EXAM: 10/23/2020 4:25 PM COMPARISON: NONE CLINICAL HISTORY: I80.9 Phlebitis and thrombophlebitis. Knee pain. No hx DVT per patient. SIDE PERFORMED: Left TECHNIQUE: The lower extremity deep venous system is examined utilizing real time linear array sonog octavio with graded compression, doppler sonography and color-flow sonography. VESSELS IMAGED: Common Femoral Vein Deep Femoral Vein Greater Saphenous Vein * Femoral Vein Popliteal Vein Small Saphenous Vein * Proximal Calf Veins (* superficial vessels) Left Leg: Appears positive for DVT in mid femoral vein of unknown age. Nonoccluding. Femoral vein appears small in size. Collaterals seen at mid femoral vein. IMPRESSION: 1. Mid left femoral vein deep venous thrombosis. Echogenic material with some minimal color flow with in and adjacent is present. This could suggest chronic thrombus.
== END ==
LOC: RADUSWWP 15:47
PROVIDERS: ATTEND Orthopaedic Surgery Sports Medicine
DX: I82.412 Acute embolism and thrombosis of left femoral vein (principal)